=== PATIENT | female | born 1960 | race African-American/Black ===

== ENCOUNTER 2017-03-01 10:46 | Emergency (ER) | payer MEDICAID ==
[2017-03-01 10:47] VITALS: BP 133/69
== END 2017-03-01 13:14 | disposition home or self-care (01) ==
LOC: ER 11:51
DX: H66.91 Otitis media, unspecified, right ear (principal); Z88.6 Allergy status to analgesic agent; Z98.890 Other specified postprocedural states
CPT/HCPCS: 99283

== ENCOUNTER 2017-03-26 10:51 | Emergency (ER) | payer MEDICAID ==
[~2017-03-26] VITALS: Ht 170.2 cm; Wt 61.3 kg
[2017-03-26 11:58] VITALS: BP 130/72
== END 2017-03-26 17:06 | disposition home or self-care (01) ==
LOC: ER 14:15
DX: H53.9 Unspecified visual disturbance (principal); Z88.5 Allergy status to narcotic agent
CPT/HCPCS: 99281

== ENCOUNTER 2017-09-02 10:52 | Emergency (ER) | payer MEDICAID ==
[~2017-09-02] VITALS: Ht 170.2 cm; Wt 62.0 kg
[2017-09-02] MEDS ORDERED: IBUPROFEN 400MG TABLET PO ONE (11:30)
[2017-09-02 12:16] LABS: BASOPHILS % 0.6 % (0.0-2.0); EOSINOPHILS % 1.4 % (0.0-5.0); HEMATOCRIT. 36.6 % (36.0-48.0); HEMOGLOBIN. 12.3 g/dL (12.0-16.0); LYMPHOCYTES % 26.1 % (20.0-50.0); MEAN CORPUSCULAR HEMOGLOBIN 28.6 pg (28.0-32.0); MEAN CORPUSCULAR VOLUME 85.2 fL (81.0-99.0); MONOCYTES % 9.2 % (2.0-8.0); NEUTROPHILS % 62.7 % (40.0-76.0); PLATELET 170 x1000/uL (130-400); RED CELL DISTRIBUTION WIDTH 13.1 % (11.6-14.6)
[2017-09-02 12:27] LABS: CARBON DIOXIDE 30 mEq/L (21-32); CHLORIDE 105 mEq/L (98-107); TROPONIN I < 0.02 ng/mL (0.00-0.04)
[2017-09-02 13:05] VITALS: BP 128/56
== END 2017-09-02 13:22 | disposition home or self-care (01) ==
LOC: ER 10:52
DX: R07.89 Other chest pain (principal); D72.819 Decreased white blood cell count, unspecified; R20.2 Paresthesia of skin; R05 Cough; Z88.6 Allergy status to analgesic agent
CPT/HCPCS: 36415; 71010; 80053; 83735; 84484; 85025; 93005; 99285

== ENCOUNTER 2018-08-04 00:26 | Inpatient (IN) | payer MEDICAID ==
[~2018-08-04] VITALS: Ht 172.7 cm; Wt 59.9 kg
[2018-08-04] MEDS ORDERED: NITROGLYCERIN OINT 1GM/INCH UDPKT TD ONE (01:15)
[2018-08-04] MEDS ORDERED: ASPIRIN 81MG TABLET PO ONE (01:15)
[2018-08-04 02:22] LABS: CHLORIDE 106 mEq/L (98-107)
[2018-08-04 02:30] LABS: BASOPHILS % 0.8 % (0.0-2.0); EOSINOPHILS % 2.6 % (0.0-5.0); HEMATOCRIT. 39.5 % (36.0-48.0); HEMOGLOBIN. 13.4 g/dL (12.0-16.0); LYMPHOCYTES % 37.6 % (20.0-50.0); MEAN CORPUSCULAR HEMOGLOBIN 29.6 pg (28.0-32.0); MEAN CORPUSCULAR VOLUME 87.5 fL (81.0-99.0); MONOCYTES % 7.3 % (2.0-8.0); NEUTROPHILS % 51.7 % (40.0-76.0); PLATELET 172 x1000/uL (130-400); RED BLOOD CELL COUNT 4.52 mill/uL (4.2-5.4); RED CELL DISTRIBUTION WIDTH 12.9 % (11.6-14.6)
[2018-08-04] MEDS ORDERED: SODIUM CHLORIDE 0.9% 1,000 ML IV SCH (04:48)
[2018-08-04 08:42] LABS: CLARITY URINE CLEAR (CLEAR); COLOR URINE YELLOW (YELLOW); KETONES URINE NEGATIVE (NEGATIVE); LEUKOCYTE ESTERASE URINE 3+ (NEGATIVE); NITRITE URINE NEGATIVE (NEGATIVE); OCCULT BLOOD URINE NEGATIVE (NEGATIVE); PH URINE 6.5 (4.5-8.0); PROTEIN URINE NEGATIVE (NEGATIVE); SPECIFIC GRAVITY URINE 1.014 (1.005-1.030); UROBILINOGEN URINE 0.2 E.U./dL (0.2-1.0)
[2018-08-04] MEDS ORDERED: ACETAMINOPHEN 325MG TABLET PO PRN (08:45)
[2018-08-04 09:33] LABS: *AMPHETAMINES SCREEN URINE NEGATIVE (NEGATIVE); *BARBITURATES SCREEN URINE NEGATIVE (NEGATIVE); *BENZODIAZEPINES SCREEN URINE NEGATIVE (NEGATIVE); *COCAINE SCREEN URINE NEGATIVE (NEGATIVE); METHADONE URINE SCREEN NEGATIVE (NEGATIVE)
[2018-08-04 09:34] LABS: CANNABINOID URINE SCREEN NEGATIVE (NEGATIVE); OPIATES URINE SCREEN NEGATIVE (NEGATIVE); PHENCYCLIDINE URINE SCREEN NEGATIVE (NEGATIVE)
[2018-08-04 09:55] LABS: LDL CHOLESTEROL 98 mg/dL (5-100)
[2018-08-04 09:56] LABS: CREATINE KINASE 126 IU/L (26-192)
[2018-08-04 09:57] LABS: HDL CHOLESTEROL 60 mg/dL (40-59)
[2018-08-04 09:59] LABS: CREATINE KINASE MB FRACTION 1.3 ng/mL (0.5-3.6)
[2018-08-04 14:20] VITALS: BP 116/53
[2018-08-04] MEDS: METOPROLOL TARTRATE 25MG TABLET PO SCH ×2 (14:41→21:00)
[2018-08-04 16:00] VITALS: BP 129/48
[2018-08-04 20:00] VITALS: BP 123/75
[2018-08-05] VITALS: BP 106/60
[2018-08-05 07:30] VITALS: BP 110/50
[2018-08-05 08:28] LABS: BASOPHILS % 0.8 % (0.0-2.0); EOSINOPHILS % 3.3 % (0.0-5.0); HEMATOCRIT. 40.6 % (36.0-48.0); HEMOGLOBIN. 13.6 g/dL (12.0-16.0); LYMPHOCYTES % 33.5 % (20.0-50.0); MEAN CORPUSCULAR HEMOGLOBIN 29.3 pg (28.0-32.0); MEAN CORPUSCULAR VOLUME 87.3 fL (81.0-99.0); MEAN PLATELET VOLUME 9.7 fl (7.4-10.4); MONOCYTES % 6.8 % (2.0-8.0); NEUTROPHILS % 55.6 % (40.0-76.0); PLATELET 184 x1000/uL (130-400); RED BLOOD CELL COUNT 4.65 mill/uL (4.2-5.4); RED CELL DISTRIBUTION WIDTH 13.1 % (11.6-14.6)
[2018-08-05 08:32] LABS: CHLORIDE 107 mEq/L (98-107)
[2018-08-05] MEDS: METOPROLOL TARTRATE 25MG TABLET PO SCH (08:58)
[2018-08-05] MEDS: ASPIRIN 81MG TABLET PO SCH (09:00)
[2018-08-05 12:00] VITALS: BP 142/61
[2018-08-05 16:14] VITALS: BP 119/62
[2018-08-05 17:14] VITALS: BP 119/80
== END 2018-08-05 20:00 | disposition home or self-care (01) | DRG 203 ==
LOC: ER 00:26 → 8WST 04:49 → EDBEDREQTM 04:54 → EDBEDREQ 04:54 → ENRESERV 12:46
PROVIDERS: ADMIT Internal Medicine; ATTEND Internal Medicine
DX: M94.0 Chondrocostal junction syndrome [Tietze] (principal); M79.601 Pain in right arm; R00.1 Bradycardia, unspecified; Z82.49 Family history of ischemic heart disease and other diseases of the circulatory system; Z82.3 Family history of stroke; Z88.5 Allergy status to narcotic agent
CPT/HCPCS: 36415; 71045; 80048; 80061; 80305; 82550; 82553; 84443; 84484; 85379; 93005; 93306; 96360; 96361; 99285; J7030

== ENCOUNTER 2018-09-27 10:16 | Inpatient (IN) | payer MEDICAID ==
[~2018-09-27] VITALS: Ht 170.2 cm; Wt 56.7 kg
[2018-09-27 12:24] LABS: BASOPHILS % 0.6 % (0.0-2.0); EOSINOPHILS % 3.9 % (0.0-5.0); HEMATOCRIT. 40.8 % (36.0-48.0); HEMOGLOBIN. 13.6 g/dL (12.0-16.0); LYMPHOCYTES % 24.8 % (20.0-50.0); MEAN CORPUSCULAR HEMOGLOBIN 29.2 pg (28.0-32.0); MEAN CORPUSCULAR VOLUME 87.6 fL (81.0-99.0); MEAN PLATELET VOLUME 9.5 fl (7.4-10.4); MONOCYTES % 7.3 % (2.0-8.0); NEUTROPHILS % 63.4 % (40.0-76.0); PLATELET 177 x1000/uL (130-400); RED BLOOD CELL COUNT 4.66 mill/uL (4.2-5.4); RED CELL DISTRIBUTION WIDTH 13.2 % (11.6-14.6)
[2018-09-27 12:33] LABS: CHLORIDE 107 mEq/L (98-107)
[2018-09-27 12:39] LABS: ETHANOL BLOOD < 10 mg/dL
[2018-09-27] MEDS ORDERED: ASPIRIN 325MG EC TABLET PO ONE (13:00)
[2018-09-27] MEDS ORDERED: MECLIZINE 25MG TABLET PO PRN (15:00)
[2018-09-27] MEDS ORDERED: ONDANSETRON HCL 4MG/2ML INJ IV PRN (15:00)
[2018-09-27] MEDS ORDERED: ACETAMINOPHEN 325MG TABLET PO PRN (15:00)
[2018-09-27 18:16] LABS: CLARITY URINE CLEAR (CLEAR); COLOR URINE YELLOW (YELLOW); KETONES URINE NEGATIVE (NEGATIVE); LEUKOCYTE ESTERASE URINE NEGATIVE (NEGATIVE); NITRITE URINE NEGATIVE (NEGATIVE); OCCULT BLOOD URINE TRACE (NEGATIVE); PROTEIN URINE NEGATIVE (NEGATIVE); SPECIFIC GRAVITY URINE 1.012 (1.005-1.030); UROBILINOGEN URINE 0.2 E.U./dL (0.2-1.0)
[2018-09-27 18:29] LABS: *AMPHETAMINES SCREEN URINE NEGATIVE (NEGATIVE); *BARBITURATES SCREEN URINE NEGATIVE (NEGATIVE); *BENZODIAZEPINES SCREEN URINE NEGATIVE (NEGATIVE); *COCAINE SCREEN URINE NEGATIVE (NEGATIVE)
[2018-09-27 18:30] LABS: CANNABINOID URINE SCREEN NEGATIVE (NEGATIVE); METHADONE URINE SCREEN NEGATIVE (NEGATIVE); OPIATES URINE SCREEN NEGATIVE (NEGATIVE); PHENCYCLIDINE URINE SCREEN NEGATIVE (NEGATIVE)
[2018-09-27 22:10] VITALS: BP 124/73
[2018-09-27 22:30] VITALS: BP 124/73
[2018-09-28] VITALS (7 sets, daily range): BP systolic 107–125; BP diastolic 52–88
[2018-09-28] MEDS ORDERED: PNEUMOCOCCAL 23-VAL P-SAC VAC 0.5 ML IM ONE (08:00)
[2018-09-28] MEDS ORDERED: ASPIRIN 81MG TABLET PO SCH (09:00)
[2018-09-28] MEDS ORDERED: INFLUENZA VIRUS VACCINE(AFLURIA) 0.5ML SYR IM ONE (10:00)
[2018-09-28] MEDS ORDERED: GADOBENATE DIMEGLUMINE 529 MG/ML 10ML IV ONE (16:32)
== END 2018-09-28 20:30 | disposition home or self-care (01) | DRG 43 ==
LOC: ER 10:16 → 8WST 13:04 → EDBEDREQ 13:05 → ENRESERV 19:47
PROVIDERS: ADMIT Internal Medicine; ATTEND Internal Medicine
DX: G35 Multiple sclerosis (principal); R27.0 Ataxia, unspecified; Z88.5 Allergy status to narcotic agent
CPT/HCPCS: 36415; 70551; 70552; 71045; 72156; 80305; 84484; 90686; 90732; 93005; 97116; 97162; 99285; A9577; G0482

== ENCOUNTER 2018-10-20 12:25 | Emergency (ER) | payer MEDICAID ==
[~2018-10-20] VITALS: Ht 167.6 cm; Wt 57.0 kg
[2018-10-20 12:51] VITALS: BP 150/91
== END 2018-10-20 15:10 | disposition left against medical advice (07) ==
LOC: ER 12:25
DX: R20.8 Other disturbances of skin sensation (principal); Z53.21 Procedure and treatment not carried out due to patient leaving prior to being seen by health care provider

== ENCOUNTER 2019-02-07 11:33 | Emergency (ER) | payer MEDICAID ==
[~2019-02-07] VITALS: Ht 170.2 cm; Wt 65.0 kg
[2019-02-07 13:00] LABS: BASOPHILS % 0.8 % (0.0-2.0); CHLORIDE 108 mEq/L (98-107); EOSINOPHILS % 3.7 % (0.0-5.0); HEMOGLOBIN. 12.4 g/dL (12.0-16.0); LYMPHOCYTES % 34.4 % (20.0-50.0); MEAN CORPUSCULAR HEMOGLOBIN 29.3 pg (28.0-32.0); MEAN CORPUSCULAR VOLUME 87.3 fL (81.0-99.0); MEAN PLATELET VOLUME 10.2 fl (7.4-10.4); MONOCYTES % 8.6 % (2.0-8.0); NEUTROPHILS % 52.5 % (40.0-76.0); PLATELET 153 x1000/uL (130-400); RED BLOOD CELL COUNT 4.24 mill/uL (4.2-5.4)
[2019-02-07 13:01] LABS: PROTHROMBIN TIME 10.8 sec (9.6-11.0)
[2019-02-07 14:02] VITALS: BP 128/71
== END 2019-02-07 14:23 | disposition home or self-care (01) ==
LOC: ER 11:33
DX: R42 Dizziness and giddiness (principal); R41.3 Other amnesia; Z88.5 Allergy status to narcotic agent; Z98.890 Other specified postprocedural states
CPT/HCPCS: 36415; 71045; 84484; 93005; 99284